=== PATIENT | female | born 1990 | race Caucasian/White ===

== ENCOUNTER 2017-05-27 22:22 | Emergency (ER) | payer SELFPAY ==
[~2017-05-27] VITALS: Ht 144.8 cm; Wt 70.5 kg
[2017-05-28] MEDS ORDERED: HYDROCODONE/APAP 7.5/325MG 1 TAB TABLET PO ONE (03:30)
[2017-05-28 06:01] VITALS: BP 106/72
== END 2017-05-28 06:03 | disposition home or self-care (01) ==
LOC: ER 22:54
DX: S00.11XA Contusion of right eyelid and periocular area, initial encounter (principal); S00.83XA Contusion of other part of head, initial encounter; H11.31 Conjunctival hemorrhage, right eye; F12.10 Cannabis abuse, uncomplicated; Y00.XXXA Assault by blunt object, initial encounter; Y93.89 Activity, other specified; Y92.89 Other specified places as the place of occurrence of the external cause
CPT/HCPCS: 70450; 70486; 81025; 99284; Z7610